=== PATIENT | female | born 1950 | race Caucasian/White ===

== ENCOUNTER → 2016-09-19 | Outpatient (CLI) | payer MEDICARE, BC ==
[~2016-09-19] MED LIST: BENZ200C43 PO; CETI10TA20 PO; FLUT16SP NSEACH; HYDR-33 PO; LEVO5TAB12 PO; OMEP10CA4 PO; ONDA4TAB11 PO; ONDA4TAB8 PO; PANT40TA3 PO
--- NOTE | 2016-09-20 09:29 | Diagnostic Imaging Report ---
INDICATION: Screening. COMPARISON: September 2015. The current digital study was evaluated with a Computer Aided Detection (CAD). FINDINGS: No masses have developed. There are no clustered calcifications. No architectural distortion has occurred. IMPRESSION: Stable bilateral mammogram. Routine followup recommended. ACR BI-RADS Category 1: Negative. Result letter will be mailed to the patient. Note: At least 10% of breast cancer is not imaged by mammography. Dictated by: Dictated on workstation # [id number]
== END ==
LOC: RAD 07:49
PROVIDERS: ATTEND Family Medicine
DX: Z12.31 Encounter for screening mammogram for malignant neoplasm of breast (principal)